=== PATIENT | male | born 1950 | race Caucasian/White ===

== ENCOUNTER 2022-09-27 06:04 | Day surgery (SDC) | payer MEDICARE, OTHER ==
[~2022-09-27] VITALS: Ht 177.8 cm; Wt 66.3 kg
[2022-09-27] VITALS (7 sets, daily range): BP systolic 89–114; BP diastolic 67–77; PULSE 95–117; RESP 16; TEMP 97.6; O2SAT 93–94
[2022-09-27] MEDS ORDERED: albumin 25% 100mL bottle x 1 IV PRN (06:35)
[2022-09-27] MEDS ORDERED: ROSU40TA22 PO (06:59)
[2022-09-27] MEDS ORDERED: ASPI-20 PO (06:59)
[2022-09-27] MEDS ORDERED: ASPI-1140 PO (06:59)
== END 2022-09-27 09:05 | disposition home or self-care (01) ==
LOC: SSTAY O 06:04
PROVIDERS: ATTEND Radiology Diagnostic Radiology
DX: C34.90 Malignant neoplasm of unspecified part of unspecified bronchus or lung (principal); J91.0 Malignant pleural effusion; E78.5 Hyperlipidemia, unspecified; I10 Essential (primary) hypertension; J44.9 Chronic obstructive pulmonary disease, unspecified; F17.210 Nicotine dependence, cigarettes, uncomplicated; F10.20 Alcohol dependence, uncomplicated; Z98.890 Other specified postprocedural states; Z88.1 Allergy status to other antibiotic agents; Z91.013 Allergy to seafood; Z79.899 Other long term (current) drug therapy; Z79.82 Long term (current) use of aspirin
CPT/HCPCS: 32555; C1729; J3490; A6258